=== PATIENT | female | born 1945 | race Caucasian/White ===

== ENCOUNTER 2016-10-07 09:48 | Emergency (ER) | payer MEDICARE ==
[2016-10-07] MEDS ORDERED: NORCO 5/325 PO ONE (12:41)
--- NOTE | 2016-10-07 12:46 | Emergency Department Report ---
Addendum entered and electronically signed by PEDRO ARREOLA NP 10/07/16 15:04: Original Note: ED Extremity Problem HPI - General Chief complaint: Extremity Problem,Nontraumatic Stated complaint: L LEG SWOLLEN/POSS BLOOD CLOTS Time Seen by Provider: 10/07/16 12:18 Source: patient Mode of arrival: Ambulatory Limitations: No Limitations - History of Present Illness MD Complaint: extremity pain Onset/Timin -: Sudden, week(s) Location: left, lower extremity History of Same: Yes (sciatica) -: Yes myalgia, Yes arthralgia Radiation: distal Severity scale (0 -10): 5 Quality: sharp Consistency: constant Improves with: rest Worsens with: weight bearing, walking, exertion, palpation Associated Symptoms: myalgias, arthralgias. denies: chest pain, shortness of breath, fever, rash - Related Data Home Medications Medication Instructions Recorded Confirmed Last Taken Amlodipine Besylate [Norvasc] 10 mg PO DAILY 01/04/14 12/28/14 12/28/14 Aspirin [Aspirin BABY CHEW TAB] 81 mg PO DAILY 01/04/14 12/28/14 12/28/14 Citalopram [Celexa] 20 mg PO DAILY 01/04/14 12/28/14 12/27/14 Cyclobenzaprine [Flexeril 10mg] 10 mg PO PRN 01/04/14 12/28/14 12/27/14 Dicyclomine HCl 20 mg PO QHS 01/04/14 12/28/14 12/27/14 Insulin NPL/Insulin Lispro 30 units SUB-Q DAILY 01/04/14 12/28/14 12/28/14 [Humalog Mix 75-25 Vial] Lisinopril/Hydrochlorothiazide 1 tab PO DAILY 01/04/14 12/28/14 12/28/14 [Zestoretic 20-25 mg] Loratadine [Claritin] 10 mg PO DAILY 01/04/14 12/28/14 12/28/14 Meclizine [Antivert] 25 mg PO TID PRN 01/04/14 12/28/14 12/28/14 Meloxicam 15 mg PO QHS 01/04/14 12/28/14 12/27/14 glipiZIDE [glipiZIDE XL] 20 mg PO DAILY 01/04/14 12/28/14 12/27/14 metFORMIN [Glucophage] 500 mg PO BID 01/04/14 12/28/14 12/27/14 Amoxicillin/K Clav Tab [Augmentin 1 each PO Q12HR 12/28/14 12/28/14 12/28/14 500 MG TAB] Butalb/Acetamin/Caff 50-325-40 1 each PO Q4H PRN 12/28/14 12/28/14 12/28/14 [Fioricet] Gabapentin [Neurontin] 300 mg PO BID 12/28/14 12/28/14 12/28/14 Ranitidine HCl [Zantac 150 MG TAB] 150 mg PO BID 12/28/14 12/28/14 12/28/14 Previous Rx's Medication Instructions Recorded Last Taken Type Clindamycin [Clindamycin CAP] 300 mg PO Q6H #40 capsule 12/28/14 Unknown Rx Acetaminophen/Codeine [Tylenol 1 tab PO Q8H PRN #12 tab 10/07/16 Unknown Rx /Codeine # 3 tab] Cyclobenzaprine HCl [Flexeril 5 MG 5 mg PO TID PRN #30 tab 10/07/16 Unknown Rx TAB] Allergies Allergy/AdvReac Type Severity Reaction Status Date / Time No Known Allergies Allergy Verified 12/28/14 11:07 ED Review of Systems ROS: Stated complaint: L LEG SWOLLEN/POSS BLOOD CLOTS Other details as noted in HPI Constitutional: denies: chills, fever Eyes: denies: eye pain, eye discharge, vision change ENT: denies: ear pain, throat pain Respiratory: denies: cough, shortness of breath, wheezing Cardiovascular: denies: chest pain, palpitations Endocrine: no symptoms reported Gastrointestinal: denies: abdominal pain, nausea, diarrhea Genitourinary: denies: urgency, dysuria, discharge Musculoskeletal: arthralgia, myalgia Skin: denies: rash, lesions Neurological: denies: headache, weakness, paresthesias Psychiatric: denies: anxiety, depression Hematological/Lymphatic: denies: easy bleeding, easy bruising ED Past Medical Hx - Past Medical History Previous Medical History?: Yes Hx Hypertension: Yes Hx CVA: No Hx Congestive Heart Failure: No Hx Diabetes: Yes Hx Deep Vein Thrombosis: No Hx Pulmonary Embolism: No Hx Arthritis: Yes Hx Psychiatric Treatment: Yes (depression) Additional medical history: Sciatica; Anemia; Hyperlipidemia. NEUROPATHY - Surgical History Hx Cholecystectomy: Yes Additional Surgical History: BILATERAL CATARACT REMOVAL - Social History Smoking Status: Never Smoker Substance Use Type: None - Medications Home Medications: Home Medications Medication Instructions Recorded Confirmed Last Taken Type Amlodipine Besylate [Norvasc] 10 mg PO DAILY 01/04/14 12/28/14 12/28/14 History Aspirin [Aspirin BABY CHEW TAB] 81 mg PO DAILY 01/04/14 12/28/14 12/28/14 History Citalopram [Celexa] 20 mg PO DAILY 01/04/14 12/28/14 12/27/14 History Cyclobenzaprine [Flexeril 10mg] 10 mg PO PRN 01/04/14 12/28/14 12/27/14 History Dicyclomine HCl 20 mg PO QHS 01/04/14 12/28/14 12/27/14 History Insulin NPL/Insulin Lispro 30 units SUB-Q DAILY 01/04/14 12/28/14 12/28/14 History [Humalog Mix 75-25 Vial] Lisinopril/Hydrochlorothiazide 1 tab PO DAILY 01/04/14 12/28/14 12/28/14 History [Zestoretic 20-25 mg] Loratadine [Claritin] 10 mg PO DAILY 01/04/14 12/28/14 12/28/14 History Meclizine [Antivert] 25 mg PO TID PRN 01/04/14 12/28/14 12/28/14 History Meloxicam 15 mg PO QHS 01/04/14 12/28/14 12/27/14 History glipiZIDE [glipiZIDE XL] 20 mg PO DAILY 01/04/14 12/28/14 12/27/14 History metFORMIN [Glucophage] 500 mg PO BID 01/04/14 12/28/14 12/27/14 History Amoxicillin/K Clav Tab [Augmentin 1 each PO Q12HR 12/28/14 12/28/14 12/28/14 History 500 MG TAB] Butalb/Acetamin/Caff 50-325-40 1 each PO Q4H PRN 12/28/14 12/28/14 12/28/14 History [Fioricet] Clindamycin [Clindamycin CAP] 300 mg PO Q6H #40 capsule 12/28/14 Unknown Rx Gabapentin [Neurontin] 300 mg PO BID 12/28/14 12/28/14 12/28/14 History Ranitidine HCl [Zantac 150 MG TAB] 150 mg PO BID 12/28/14 12/28/14 12/28/14 History Acetaminophen/Codeine [Tylenol 1 tab PO Q8H PRN #12 tab 10/07/16 Unknown Rx /Codeine # 3 tab] Cyclobenzaprine HCl [Flexeril 5 MG 5 mg PO TID PRN #30 tab 10/07/16 Unknown Rx TAB] ED Physical Exam - General Limitations: No Limitations General appearance: alert, in no apparent distress - Head Head exam: Present: atraumatic, normocephalic - Eye Eye exam: Present: normal appearance - ENT ENT exam: Present: mucous membranes moist - Neck Neck exam: Present: normal inspection - Respiratory Respiratory exam: Present: normal lung sounds bilaterally. Absent: respiratory distress - Cardiovascular Cardiovascular Exam: Present: regular rate, normal rhythm. Absent: systolic murmur, diastolic murmur, rubs, gallop - GI/Abdominal GI/Abdominal exam: Present: soft, normal bowel sounds - Rectal Rectal exam: Present: deferred - Expanded Lower Extremity Exam Left Hip exam: Present: normal inspection, full ROM, external rotation, internal rotation. Absent: tenderness, swelling, abrasion, ecchymosis, deformity, crepidus, erythema, shortening, pelvic stability Upper Leg exam: Present: normal inspection, tenderness (lateral thigh tenderness to deep palpatio no erythema no edema no ecchymosis ). Absent: swelling, abrasion, laceration, ecchymosis, deformity, crepidus, dislocation, erythema Knee exam: Present: normal inspection, full ROM, full knee extension. Absent: tenderness, swelling, abrasion, laceration, ecchymosis, deformity, crepidus, dislocation, erythema, effusion, pain w/ pronation/supination, posterior draw sign, pain/laxity with valgus, pain/laxity with varus Lower Leg exam: Present: normal inspection, tenderness (posterior calf tenderness to palpation negative homans sign ). Absent: swelling, abrasion, laceration, ecchymosis, deformity, crepidus, dislocation, erythema, palpable cord, Jagdeep's sign Ankle exam: Present: normal inspection, full ROM. Absent: tenderness, swelling , abrasion, laceration, ecchymosis, deformity, crepidus, erythema, anterior draw sign Foot/Toe exam: Present: normal inspection, full ROM. Absent: tenderness, swelling, abrasion, ecchymosis, deformity, crepidus, dislocation, erythema, calcaneal tenderness, tenderness at base of 5th metatarsal Neuro vascular tendon exam: Present: no vascular compromise. Absent: pulse deficit, abnormal cap refill, motor deficit, sensory deficit, tendon deficit, extremity cold to touch, pallor, abnormal 2-point discrimination, decreased fine /light touch, foot drop, peroneal nerve deficit, significant pain with passive ROM of distal joint Gait: Positive: observed and limited by pain - Back Exam Back exam: Present: normal inspection - Neurological Exam Neurological exam: Present: alert, oriented X3 - Psychiatric Psychiatric exam: Present: normal affect, normal mood - Skin Skin exam: Present: warm, dry, intact, normal color. Absent: rash ED Course Vital Signs 10/07/16 10:04 Temperature 98.7 F Pulse Rate 79 Respiratory 20 Rate Blood Pressure 154/70 O2 Sat by Pulse 100 Oximetry ED Medical Decision Making - Radiology Data Radiology results: report reviewed no DVT , soft tissue changes - Medical Decision Making pt is a 70 y/o [place]ish speaking female with son , pt able to communicate and understanding communication with this provider, t bedside pt sent for US LLE via primary care for LLE pain and swelling x 3 weeks, pt has hx of sciatica radiating to same leg multiple yrs, exam: pt with nad , discomfort with ambulation mild limp gait is steady and unassisted , LLE inspection no erythema no deformity no no ecchymosis, negative homas sign, ppepb+2 skin warm dry intact , back: mild pain to simulated axillary loading and rotation , sciatic region tenderness to deep palpation , left lateral thigh pain to deep palpation , calf soft no hot to touch no bruising no ecchymosis , subjective tenderness to deep palpation, PPEB+2, [employer] <3 secs bilat, pt currently rx: flexeril, gabapetin and meloxicam , Plan: doppler LLE r/o DVT result: no dvt, soft tissue changes, no cyst or mass palpable on exam, no ecchymosis no bruising suggesting contusion, pt's pain is improved with po pain med given in ED pt is ambulatory with minimal limp , gait steady pain 2/10 at this time , plan: dc to home with tylenol prn pain , flexeril 5 mg po tid prn spasm , follow up with Dr. Azra Sotomayor Primary Care doctor as directed , pt given strict instructions to return to emergency if symptoms worsen. both patient and son verabalized understanding and agreement with discharge plan. Critical care attestation.: If time is entered above; I have spent that time in minutes in the direct care of this critically ill patient, excluding procedure time. ED Disposition Disposition: DC-01 TO HOME OR SELFCARE Is pt being admited?: No Does the pt Need Aspirin: No Condition: Good Instructions: Muscle Strain (ED), Leg Sprain (ED) Additional Instructions: calf exercises as directed Prescriptions: Acetaminophen/Codeine [Tylenol /Codeine # 3 tab] 1 tab PO Q8H PRN #12 tab PRN Reason: Pain Cyclobenzaprine HCl [Flexeril 5 MG TAB] 5 mg PO TID PRN #30 tab PRN Reason: Spasms Referrals: PRIMARY CARE, [Primary Care Provider] - 3-5 Days Forms: Work/School Release Form(ED)
[2016-10-07 15:15] VITALS: BP 159/72
--- NOTE | 2016-10-08 07:29 | Vascular Lab Report ---
Left Lower Extremity Venous Duplex Study: Reason for Exam: Pain of the left lower extremity. Comments on the Right: A limited duplex study was done of the proximal veins of the right lower extremity. All veins visualized are freely compressible without evidence of internal echogenicity. Flow is spontaneous and phasic throughout. No evidence of acute or chronic thrombus is seen in any of the vessels visualized. Comments on the Left: All veins visualized are freely compressible without evidence of internal echogenicity. Flow is spontaneous and phasic throughout. No evidence of acute or chronic thrombus is seen in any of the vessels visualized. Soft tissue changes appearing in the mid calf could represent an old hematoma, complex cyst or a mass. Clinical correlation recommended. If warranted, consider CT or MRI. Impression: No evidence of acute or chronic deep venous thrombosis in the left lower extremity.
== END 2016-10-07 15:15 | disposition home or self-care (01) ==
LOC: ED 09:48
DX: M79.605 Pain in left leg (principal); R30.0 Dysuria; M79.652 Pain in left thigh; I10 Essential (primary) hypertension; E11.9 Type 2 diabetes mellitus without complications; F32.9 Major depressive disorder, single episode, unspecified; E78.5 Hyperlipidemia, unspecified; D64.9 Anemia, unspecified; E11.40 Type 2 diabetes mellitus with diabetic neuropathy, unspecified

== ENCOUNTER 2018-04-26 11:14 | Outpatient (CLI) | payer MEDICARE ==
[2018-04-26] MEDS ORDERED: XYLOCAINE TOPICAL 4% TP ONE (11:35)
== END 2018-04-26 11:15 | disposition home or self-care (01) ==
LOC: WOUND 11:14
PROVIDERS: ATTEND Surgery
DX: T81.89XD Other complications of procedures, not elsewhere classified, subsequent encounter (principal); E11.622 Type 2 diabetes mellitus with other skin ulcer; L97.322 Non-pressure chronic ulcer of left ankle with fat layer exposed; Y83.8 Other surgical procedures as the cause of abnormal reaction of the patient, or of later complication, without mention of misadventure at the time of the procedure
CPT/HCPCS: 11042; 11045; G0463; 36415; 83036; 99215

== ENCOUNTER 2018-04-26 12:34 | Outpatient (CLI) | payer MEDICARE | END 2018-04-26 12:35 | disposition home or self-care (01) | LOC: LAB 12:34 | PROVIDERS: ATTEND Surgery | DX: E11.628 Type 2 diabetes mellitus with other skin complications (principal); I10 Essential (primary) hypertension; M19.90 Unspecified osteoarthritis, unspecified site; Z90.49 Acquired absence of other specified parts of digestive tract | CPT/HCPCS: 36415; 83036 ==

== ENCOUNTER 2018-05-01 10:37 | Outpatient (CLI) | payer MEDICARE ==
--- NOTE | 2018-05-01 20:52 | Vascular Lab Report ---
FINAL REPORT EXAM: VL ARTERIAL DUPLEX LE LT HISTORY: TYPE 2 DIABETES MELLITUS WITH OTHER SKIN COMPLICATIONS TECHNIQUE: Grayscale, color flow and Doppler waveform imaging of the arterial structures of the left lower extremity from the distal external iliac artery to the anterior tibial artery and posterior ti bial artery was performed. Comparison: None . FINDINGS: There are triphasic waveforms in the distal external iliac artery, common femoral artery, superficial femoral artery and popliteal artery and biphasic waveforms in the deep femoral artery, proximal post erior tibial and proximal anterior tibial arteries. Peak systolic velocities are as follows: (Centimeters per second). Distal external iliac artery 136 Common femoral artery 116 Superficial femoral artery 105, 132, 83 Deep femoral artery 72 Popliteal artery 84 Posterior tibial artery 16.4 Anterior tibial artery 164.3 IMPRESSION: 1. Findings suggestive of significant atherosclerotic vascular disease at the level of the trifurcati on. CT angiogram or MR angiogram may be helpful for further evaluation.
== END 2018-05-01 10:38 | disposition home or self-care (01) ==
LOC: VAS 10:37
PROVIDERS: ATTEND Surgery
DX: E11.628 Type 2 diabetes mellitus with other skin complications (principal); I10 Essential (primary) hypertension; M19.90 Unspecified osteoarthritis, unspecified site

== ENCOUNTER 2018-05-04 08:28 | Outpatient (CLI) | payer MEDICARE ==
[2018-05-04] MEDS ORDERED: XYLOCAINE TOPICAL 4% TP ONE (08:31)
[2018-05-04] MEDS ORDERED: AD OINTMENT TP PRN (08:31)
== END 2018-05-04 08:29 | disposition home or self-care (01) ==
LOC: WOUND 08:28
PROVIDERS: ATTEND Surgery
DX: T81.89XD Other complications of procedures, not elsewhere classified, subsequent encounter (principal); E11.622 Type 2 diabetes mellitus with other skin ulcer; L97.325 Non-pressure chronic ulcer of left ankle with muscle involvement without evidence of necrosis; Y83.8 Other surgical procedures as the cause of abnormal reaction of the patient, or of later complication, without mention of misadventure at the time of the procedure
CPT/HCPCS: A6250

== ENCOUNTER 2018-05-11 08:54 | Outpatient (CLI) | payer MEDICARE | END 2018-05-11 08:55 | disposition home or self-care (01) | LOC: WOUND 08:54 ==

== ENCOUNTER 2018-05-24 08:12 | Outpatient (CLI) | payer MEDICARE ==
[2018-05-24] MEDS ORDERED: SILVER NITRATE TP ONE (08:21)
[2018-05-24] MEDS ORDERED: XYLOCAINE TOPICAL 4% TP ONE (08:22)
[2018-05-24] MEDS ORDERED: AD OINTMENT TP PRN (08:22)
== END 2018-05-24 08:13 | disposition home or self-care (01) ==
LOC: WOUND 08:12
PROVIDERS: ATTEND Surgery
DX: T81.89XD Other complications of procedures, not elsewhere classified, subsequent encounter (principal); E11.622 Type 2 diabetes mellitus with other skin ulcer; L97.322 Non-pressure chronic ulcer of left ankle with fat layer exposed; Y83.8 Other surgical procedures as the cause of abnormal reaction of the patient, or of later complication, without mention of misadventure at the time of the procedure

== ENCOUNTER 2018-06-07 08:36 | Outpatient (CLI) | payer MEDICARE ==
[2018-06-07] MEDS ORDERED: SILVER NITRATE TP ONE (09:12)
[2018-06-07] MEDS ORDERED: XYLOCAINE TOPICAL 4% TP ONE (09:12)
== END 2018-06-07 08:37 | disposition home or self-care (01) ==
LOC: WOUND 08:36
PROVIDERS: ATTEND Surgery
DX: T81.89XD Other complications of procedures, not elsewhere classified, subsequent encounter (principal); E11.622 Type 2 diabetes mellitus with other skin ulcer; L97.322 Non-pressure chronic ulcer of left ankle with fat layer exposed; Y83.8 Other surgical procedures as the cause of abnormal reaction of the patient, or of later complication, without mention of misadventure at the time of the procedure

== ENCOUNTER 2018-06-14 08:28 | Outpatient (CLI) | payer MEDICARE ==
[2018-06-14] MEDS ORDERED: XYLOCAINE TOPICAL 4% TP ONE (08:54)
== END 2018-06-14 08:29 | disposition home or self-care (01) ==
LOC: WOUND 08:28
PROVIDERS: ATTEND Surgery
DX: T81.89XD Other complications of procedures, not elsewhere classified, subsequent encounter (principal); E11.622 Type 2 diabetes mellitus with other skin ulcer; L97.322 Non-pressure chronic ulcer of left ankle with fat layer exposed; Y83.8 Other surgical procedures as the cause of abnormal reaction of the patient, or of later complication, without mention of misadventure at the time of the procedure

== ENCOUNTER 2018-06-21 08:32 | Outpatient (CLI) | payer MEDICARE | END 2018-06-21 08:33 | disposition home or self-care (01) | LOC: WOUND 08:32 ==

== ENCOUNTER 2018-06-28 08:29 | Outpatient (CLI) | payer MEDICARE ==
[2018-06-28] MEDS ORDERED: AD OINTMENT TP SCH (10:00)
[2018-06-28] MEDS ORDERED: XYLOCAINE TOPICAL 4% TP ONE (10:00)
== END 2018-06-28 08:30 | disposition home or self-care (01) ==
LOC: WOUND 08:29
PROVIDERS: ATTEND Surgery
DX: T81.89XD Other complications of procedures, not elsewhere classified, subsequent encounter (principal); E11.622 Type 2 diabetes mellitus with other skin ulcer; L97.322 Non-pressure chronic ulcer of left ankle with fat layer exposed; Y83.8 Other surgical procedures as the cause of abnormal reaction of the patient, or of later complication, without mention of misadventure at the time of the procedure
CPT/HCPCS: A6250

== ENCOUNTER 2018-07-19 08:30 | Outpatient (CLI) | payer MEDICARE ==
[2018-07-19] MEDS ORDERED: XYLOCAINE TOPICAL 4% TP ONE (08:33)
[2018-07-19] MEDS ORDERED: AD OINTMENT TP SCH (10:00)
== END 2018-07-19 08:31 | disposition home or self-care (01) ==
LOC: WOUND 08:30
PROVIDERS: ATTEND Surgery
DX: T81.89XD Other complications of procedures, not elsewhere classified, subsequent encounter (principal); E11.621 Type 2 diabetes mellitus with foot ulcer; L97.322 Non-pressure chronic ulcer of left ankle with fat layer exposed; Y83.8 Other surgical procedures as the cause of abnormal reaction of the patient, or of later complication, without mention of misadventure at the time of the procedure
CPT/HCPCS: A6250

== ENCOUNTER 2018-07-26 08:34 | Outpatient (CLI) | payer MEDICARE ==
[2018-07-26] MEDS ORDERED: XYLOCAINE TOPICAL 4% TP ONE (09:00)
== END 2018-07-26 08:35 | disposition home or self-care (01) ==
LOC: WOUND 08:34
PROVIDERS: ATTEND Surgery
DX: T81.89XD Other complications of procedures, not elsewhere classified, subsequent encounter (principal); E11.622 Type 2 diabetes mellitus with other skin ulcer; L97.322 Non-pressure chronic ulcer of left ankle with fat layer exposed; Y83.8 Other surgical procedures as the cause of abnormal reaction of the patient, or of later complication, without mention of misadventure at the time of the procedure

== ENCOUNTER 2018-08-02 08:34 | Outpatient (CLI) | payer MEDICARE ==
[2018-08-02] MEDS ORDERED: XYLOCAINE TOPICAL 4% TP ONE (09:00)
== END 2018-08-02 08:35 | disposition home or self-care (01) ==
LOC: WOUND 08:34
PROVIDERS: ATTEND Surgery
DX: T81.89XD Other complications of procedures, not elsewhere classified, subsequent encounter (principal); E11.622 Type 2 diabetes mellitus with other skin ulcer; L97.322 Non-pressure chronic ulcer of left ankle with fat layer exposed; Y83.8 Other surgical procedures as the cause of abnormal reaction of the patient, or of later complication, without mention of misadventure at the time of the procedure

== ENCOUNTER 2018-08-09 08:13 | Outpatient (CLI) | payer MEDICARE ==
[2018-08-09] MEDS ORDERED: XYLOCAINE TOPICAL 4% TP ONE (08:29)
[2018-08-09] MEDS ORDERED: AD OINTMENT TP SCH (10:00)
== END 2018-08-09 08:14 | disposition home or self-care (01) ==
LOC: WOUND 08:13
PROVIDERS: ATTEND Surgery
DX: T81.89XD Other complications of procedures, not elsewhere classified, subsequent encounter (principal); E11.622 Type 2 diabetes mellitus with other skin ulcer; L97.322 Non-pressure chronic ulcer of left ankle with fat layer exposed; Y83.8 Other surgical procedures as the cause of abnormal reaction of the patient, or of later complication, without mention of misadventure at the time of the procedure

== ENCOUNTER 2018-08-16 08:08 | Outpatient (CLI) | payer MEDICARE ==
[2018-08-16] MEDS ORDERED: XYLOCAINE TOPICAL 4% TP ONE (08:30)
[2018-08-16] MEDS ORDERED: SILVER NITRATE TP ONE (08:30)
== END 2018-08-16 08:09 | disposition home or self-care (01) ==
LOC: WOUND 08:08
PROVIDERS: ATTEND Surgery
DX: T81.89XD Other complications of procedures, not elsewhere classified, subsequent encounter (principal); E11.622 Type 2 diabetes mellitus with other skin ulcer; L97.322 Non-pressure chronic ulcer of left ankle with fat layer exposed; Y83.8 Other surgical procedures as the cause of abnormal reaction of the patient, or of later complication, without mention of misadventure at the time of the procedure

== ENCOUNTER 2018-08-23 08:39 | Outpatient (CLI) | payer MEDICARE | END 2018-08-23 08:40 | disposition home or self-care (01) | LOC: WOUND 08:39 | PROVIDERS: ATTEND Surgery | DX: T81.89XD Other complications of procedures, not elsewhere classified, subsequent encounter (principal); E11.622 Type 2 diabetes mellitus with other skin ulcer; L97.322 Non-pressure chronic ulcer of left ankle with fat layer exposed; Y83.8 Other surgical procedures as the cause of abnormal reaction of the patient, or of later complication, without mention of misadventure at the time of the procedure | CPT/HCPCS: 97605 ==

== ENCOUNTER 2018-08-30 08:10 | Outpatient (CLI) | payer MEDICARE | END 2018-08-30 08:11 | disposition home or self-care (01) | LOC: WOUND 08:10 | PROVIDERS: ATTEND Surgery | DX: T81.89XD Other complications of procedures, not elsewhere classified, subsequent encounter (principal); E11.622 Type 2 diabetes mellitus with other skin ulcer; L97.322 Non-pressure chronic ulcer of left ankle with fat layer exposed; Y83.8 Other surgical procedures as the cause of abnormal reaction of the patient, or of later complication, without mention of misadventure at the time of the procedure ==

== ENCOUNTER 2018-09-13 08:47 | Outpatient (CLI) | payer MEDICARE ==
[2018-09-13] MEDS ORDERED: XYLOCAINE TOPICAL 4% TP ONE (09:30)
[2018-09-13] MEDS ORDERED: SILVER NITRATE TP ONE (09:30)
== END 2018-09-13 08:48 | disposition home or self-care (01) ==
LOC: WOUND 08:47
PROVIDERS: ATTEND Surgery
DX: T81.89XD Other complications of procedures, not elsewhere classified, subsequent encounter (principal); E11.622 Type 2 diabetes mellitus with other skin ulcer; L97.322 Non-pressure chronic ulcer of left ankle with fat layer exposed; Y83.8 Other surgical procedures as the cause of abnormal reaction of the patient, or of later complication, without mention of misadventure at the time of the procedure

== ENCOUNTER 2018-09-20 08:46 | Outpatient (CLI) | payer MEDICARE ==
[2018-09-20] MEDS ORDERED: XYLOCAINE TOPICAL 4% TP ONE (09:00)
== END 2018-09-20 08:47 | disposition home or self-care (01) ==
LOC: WOUND 08:46
PROVIDERS: ATTEND Surgery
DX: T81.89XD Other complications of procedures, not elsewhere classified, subsequent encounter (principal); E11.622 Type 2 diabetes mellitus with other skin ulcer; L97.322 Non-pressure chronic ulcer of left ankle with fat layer exposed; Y83.8 Other surgical procedures as the cause of abnormal reaction of the patient, or of later complication, without mention of misadventure at the time of the procedure

== ENCOUNTER 2018-09-27 08:30 | Outpatient (CLI) | payer MEDICARE | END 2018-09-27 08:31 | disposition home or self-care (01) | LOC: WOUND 08:30 | PROVIDERS: ATTEND Surgery | DX: T81.89XD Other complications of procedures, not elsewhere classified, subsequent encounter (principal); E11.622 Type 2 diabetes mellitus with other skin ulcer; L97.322 Non-pressure chronic ulcer of left ankle with fat layer exposed; Y83.8 Other surgical procedures as the cause of abnormal reaction of the patient, or of later complication, without mention of misadventure at the time of the procedure | CPT/HCPCS: 99214; G0463 ==

== ENCOUNTER 2018-10-04 08:36 | Outpatient (CLI) | payer MEDICARE | END 2018-10-04 08:37 | disposition home or self-care (01) | LOC: WOUND 08:36 | PROVIDERS: ATTEND Surgery | DX: T81.89XD Other complications of procedures, not elsewhere classified, subsequent encounter (principal); E11.622 Type 2 diabetes mellitus with other skin ulcer; L97.322 Non-pressure chronic ulcer of left ankle with fat layer exposed; Y83.8 Other surgical procedures as the cause of abnormal reaction of the patient, or of later complication, without mention of misadventure at the time of the procedure ==

== ENCOUNTER 2018-10-11 08:18 | Outpatient (CLI) | payer MEDICARE ==
[2018-10-11] MEDS ORDERED: XYLOCAINE TOPICAL 4% TP ONE (09:00)
[2018-10-11] MEDS ORDERED: SILVER NITRATE TP ONE (09:00)
== END 2018-10-11 08:19 | disposition home or self-care (01) ==
LOC: WOUND 08:18
PROVIDERS: ATTEND Surgery
DX: T81.89XD Other complications of procedures, not elsewhere classified, subsequent encounter (principal); E11.622 Type 2 diabetes mellitus with other skin ulcer; L97.322 Non-pressure chronic ulcer of left ankle with fat layer exposed; Y83.8 Other surgical procedures as the cause of abnormal reaction of the patient, or of later complication, without mention of misadventure at the time of the procedure

== ENCOUNTER 2018-10-26 08:08 | Outpatient (CLI) | payer MEDICARE | END 2018-10-26 08:09 | disposition home or self-care (01) | LOC: WOUND 08:08 | PROVIDERS: ATTEND Surgery | DX: T81.89XD Other complications of procedures, not elsewhere classified, subsequent encounter (principal); E11.622 Type 2 diabetes mellitus with other skin ulcer; L97.322 Non-pressure chronic ulcer of left ankle with fat layer exposed; Y83.8 Other surgical procedures as the cause of abnormal reaction of the patient, or of later complication, without mention of misadventure at the time of the procedure ==

== ENCOUNTER 2018-11-02 08:03 | Outpatient (CLI) | payer MEDICARE ==
[2018-11-02] MEDS ORDERED: XYLOCAINE TOPICAL 4% TP ONE (08:30)
[2018-11-02] MEDS ORDERED: SILVER NITRATE TP ONE (08:30)
== END 2018-11-02 08:04 | disposition home or self-care (01) ==
LOC: WOUND 08:03
PROVIDERS: ATTEND Surgery
DX: T81.89XD Other complications of procedures, not elsewhere classified, subsequent encounter (principal); E11.622 Type 2 diabetes mellitus with other skin ulcer; L97.322 Non-pressure chronic ulcer of left ankle with fat layer exposed; Y83.8 Other surgical procedures as the cause of abnormal reaction of the patient, or of later complication, without mention of misadventure at the time of the procedure

== ENCOUNTER 2018-11-09 08:06 | Outpatient (CLI) | payer MEDICARE | END 2018-11-09 08:07 | disposition home or self-care (01) | LOC: WOUND 08:06 | PROVIDERS: ATTEND Surgery | DX: T81.89XD Other complications of procedures, not elsewhere classified, subsequent encounter (principal); E11.622 Type 2 diabetes mellitus with other skin ulcer; L97.322 Non-pressure chronic ulcer of left ankle with fat layer exposed; Y83.8 Other surgical procedures as the cause of abnormal reaction of the patient, or of later complication, without mention of misadventure at the time of the procedure ==

== ENCOUNTER 2018-11-16 08:17 | Outpatient (CLI) | payer MEDICARE | END 2018-11-16 08:18 | disposition home or self-care (01) | LOC: WOUND 08:17 | PROVIDERS: ATTEND Surgery | DX: T81.89XD Other complications of procedures, not elsewhere classified, subsequent encounter (principal); E11.622 Type 2 diabetes mellitus with other skin ulcer; L97.322 Non-pressure chronic ulcer of left ankle with fat layer exposed; Y83.8 Other surgical procedures as the cause of abnormal reaction of the patient, or of later complication, without mention of misadventure at the time of the procedure | CPT/HCPCS: 87076; 87116; 87186 ==

== ENCOUNTER 2018-11-23 08:30 | Outpatient (CLI) | payer MEDICARE ==
[2018-11-23] MEDS ORDERED: XYLOCAINE TOPICAL 4% TP ONE (08:45)
== END 2018-11-23 08:31 | disposition home or self-care (01) ==
LOC: WOUND 08:30
PROVIDERS: ATTEND Surgery
DX: T81.89XD Other complications of procedures, not elsewhere classified, subsequent encounter (principal); E11.622 Type 2 diabetes mellitus with other skin ulcer; L97.322 Non-pressure chronic ulcer of left ankle with fat layer exposed; Y83.8 Other surgical procedures as the cause of abnormal reaction of the patient, or of later complication, without mention of misadventure at the time of the procedure

== ENCOUNTER 2018-11-30 08:24 | Outpatient (CLI) | payer MEDICARE ==
[2018-11-30] MEDS ORDERED: XYLOCAINE TOPICAL 4% TP ONE (09:00)
== END 2018-11-30 08:25 | disposition home or self-care (01) ==
LOC: WOUND 08:24
PROVIDERS: ATTEND Surgery
DX: T81.89XD Other complications of procedures, not elsewhere classified, subsequent encounter (principal); E11.622 Type 2 diabetes mellitus with other skin ulcer; L97.322 Non-pressure chronic ulcer of left ankle with fat layer exposed; Y83.8 Other surgical procedures as the cause of abnormal reaction of the patient, or of later complication, without mention of misadventure at the time of the procedure

== ENCOUNTER 2018-12-07 08:34 | Outpatient (CLI) | payer MEDICARE ==
[2018-12-07] MEDS ORDERED: SILVER NITRATE TP ONE (09:00)
[2018-12-07] MEDS ORDERED: XYLOCAINE TOPICAL 4% TP ONE (09:00)
== END 2018-12-07 08:35 | disposition home or self-care (01) ==
LOC: WOUND 08:34
PROVIDERS: ATTEND Surgery
DX: T81.89XD Other complications of procedures, not elsewhere classified, subsequent encounter (principal); E11.622 Type 2 diabetes mellitus with other skin ulcer; L97.322 Non-pressure chronic ulcer of left ankle with fat layer exposed; Y83.8 Other surgical procedures as the cause of abnormal reaction of the patient, or of later complication, without mention of misadventure at the time of the procedure

== ENCOUNTER 2018-12-14 08:23 | Outpatient (CLI) | payer MEDICARE ==
[2018-12-14] MEDS ORDERED: XYLOCAINE TOPICAL 4% TP ONE (09:00)
== END 2018-12-14 08:24 | disposition home or self-care (01) ==
LOC: WOUND 08:23
PROVIDERS: ATTEND Surgery
DX: T81.89XD Other complications of procedures, not elsewhere classified, subsequent encounter (principal); E11.622 Type 2 diabetes mellitus with other skin ulcer; L97.322 Non-pressure chronic ulcer of left ankle with fat layer exposed; Y83.8 Other surgical procedures as the cause of abnormal reaction of the patient, or of later complication, without mention of misadventure at the time of the procedure

== ENCOUNTER 2018-12-20 08:13 | Outpatient (CLI) | payer MEDICARE ==
[2018-12-20] MEDS ORDERED: XYLOCAINE TOPICAL 4% TP ONE (09:00)
== END 2018-12-20 08:14 | disposition home or self-care (01) ==
LOC: WOUND 08:13
PROVIDERS: ATTEND Surgery
DX: T81.89XD Other complications of procedures, not elsewhere classified, subsequent encounter (principal); E11.622 Type 2 diabetes mellitus with other skin ulcer; L97.322 Non-pressure chronic ulcer of left ankle with fat layer exposed; Y83.8 Other surgical procedures as the cause of abnormal reaction of the patient, or of later complication, without mention of misadventure at the time of the procedure

== ENCOUNTER 2018-12-28 08:23 | Outpatient (CLI) | payer MEDICARE ==
[2018-12-28] MEDS ORDERED: XYLOCAINE TOPICAL 4% TP ONE (09:00)
== END 2018-12-28 08:24 | disposition home or self-care (01) ==
LOC: WOUND 08:23
PROVIDERS: ATTEND Surgery
DX: T81.89XD Other complications of procedures, not elsewhere classified, subsequent encounter (principal); E11.622 Type 2 diabetes mellitus with other skin ulcer; L97.322 Non-pressure chronic ulcer of left ankle with fat layer exposed; Y83.8 Other surgical procedures as the cause of abnormal reaction of the patient, or of later complication, without mention of misadventure at the time of the procedure

== ENCOUNTER 2019-01-04 08:09 | Outpatient (CLI) | payer MEDICARE ==
[2019-01-04] MEDS ORDERED: SILVER NITRATE TP ONE (08:18)
[2019-01-04] MEDS ORDERED: XYLOCAINE TOPICAL 4% TP ONE (08:18)
== END 2019-01-04 08:10 | disposition home or self-care (01) ==
LOC: WOUND 08:09
PROVIDERS: ATTEND Surgery
DX: T81.89XD Other complications of procedures, not elsewhere classified, subsequent encounter (principal); E11.622 Type 2 diabetes mellitus with other skin ulcer; L97.322 Non-pressure chronic ulcer of left ankle with fat layer exposed; Y83.8 Other surgical procedures as the cause of abnormal reaction of the patient, or of later complication, without mention of misadventure at the time of the procedure

== ENCOUNTER 2019-01-18 08:14 | Outpatient (CLI) | payer MEDICARE | END 2019-01-18 08:15 | disposition home or self-care (01) | LOC: WOUND 08:14 | PROVIDERS: ATTEND Surgery | DX: T81.89XD Other complications of procedures, not elsewhere classified, subsequent encounter (principal); E11.622 Type 2 diabetes mellitus with other skin ulcer; L97.322 Non-pressure chronic ulcer of left ankle with fat layer exposed; Y83.8 Other surgical procedures as the cause of abnormal reaction of the patient, or of later complication, without mention of misadventure at the time of the procedure ==

== ENCOUNTER 2019-01-24 08:17 | Outpatient (CLI) | payer MEDICARE | END 2019-01-24 08:18 | disposition home or self-care (01) | LOC: WOUND 08:17 | PROVIDERS: ATTEND Surgery | DX: T81.89XD Other complications of procedures, not elsewhere classified, subsequent encounter (principal); E11.622 Type 2 diabetes mellitus with other skin ulcer; L97.322 Non-pressure chronic ulcer of left ankle with fat layer exposed; Y83.8 Other surgical procedures as the cause of abnormal reaction of the patient, or of later complication, without mention of misadventure at the time of the procedure ==

== ENCOUNTER 2019-01-31 08:27 | Outpatient (CLI) | payer MEDICARE | END 2019-01-31 08:28 | disposition home or self-care (01) | LOC: WOUND 08:27 | PROVIDERS: ATTEND Surgery | DX: T81.89XD Other complications of procedures, not elsewhere classified, subsequent encounter (principal); E11.622 Type 2 diabetes mellitus with other skin ulcer; L97.322 Non-pressure chronic ulcer of left ankle with fat layer exposed; Y83.8 Other surgical procedures as the cause of abnormal reaction of the patient, or of later complication, without mention of misadventure at the time of the procedure ==

== ENCOUNTER 2019-02-08 08:47 | Outpatient (CLI) | payer MEDICARE ==
[2019-02-08] MEDS ORDERED: XYLOCAINE TOPICAL 4% TP ONE (09:30)
== END 2019-02-08 08:48 | disposition home or self-care (01) ==
LOC: WOUND 08:47
PROVIDERS: ATTEND Surgery
DX: T81.89XD Other complications of procedures, not elsewhere classified, subsequent encounter (principal); E11.622 Type 2 diabetes mellitus with other skin ulcer; L97.322 Non-pressure chronic ulcer of left ankle with fat layer exposed; Y83.8 Other surgical procedures as the cause of abnormal reaction of the patient, or of later complication, without mention of misadventure at the time of the procedure

== ENCOUNTER 2019-02-22 08:36 | Outpatient (CLI) | payer MEDICARE ==
[2019-02-22] MEDS ORDERED: LIDOCAINE (4%) 40 MG/ML TOPICAL SOLN 50 ML BOTTLE TP ONE (10:00)
== END 2019-02-22 08:37 | disposition home or self-care (01) ==
LOC: WOUND 08:36
PROVIDERS: ATTEND Surgery
DX: T81.89XD Other complications of procedures, not elsewhere classified, subsequent encounter (principal); E11.622 Type 2 diabetes mellitus with other skin ulcer; L97.322 Non-pressure chronic ulcer of left ankle with fat layer exposed; Y83.8 Other surgical procedures as the cause of abnormal reaction of the patient, or of later complication, without mention of misadventure at the time of the procedure
CPT/HCPCS: 99214; G0463

== ENCOUNTER 2019-03-01 08:33 | Outpatient (CLI) | payer MEDICARE | END 2019-03-01 08:34 | disposition home or self-care (01) | LOC: WOUND 08:33 | PROVIDERS: ATTEND Surgery | DX: T81.89XD Other complications of procedures, not elsewhere classified, subsequent encounter (principal); E11.622 Type 2 diabetes mellitus with other skin ulcer; L97.322 Non-pressure chronic ulcer of left ankle with fat layer exposed; Y83.8 Other surgical procedures as the cause of abnormal reaction of the patient, or of later complication, without mention of misadventure at the time of the procedure | CPT/HCPCS: 99214; G0463 ==

== ENCOUNTER 2019-03-14 08:41 | Outpatient (CLI) | payer MEDICARE | END 2019-03-14 08:42 | disposition home or self-care (01) | LOC: WOUND 08:41 | PROVIDERS: ATTEND Surgery | DX: T81.89XD Other complications of procedures, not elsewhere classified, subsequent encounter (principal); E11.622 Type 2 diabetes mellitus with other skin ulcer; L97.322 Non-pressure chronic ulcer of left ankle with fat layer exposed; Y83.8 Other surgical procedures as the cause of abnormal reaction of the patient, or of later complication, without mention of misadventure at the time of the procedure ==

== ENCOUNTER 2019-03-22 07:59 | Outpatient (CLI) | payer MEDICARE ==
[~2019-03-22 07:59] MED LIST: traMADol 50 MG TAB ONE
[2019-03-22] MEDS ORDERED: LIDOCAINE (4%) 40 MG/ML TOPICAL SOLN 50 ML BOTTLE TP ONE (10:00)
== END 2019-03-22 08:00 | disposition home or self-care (01) ==
LOC: WOUND 07:59
PROVIDERS: ATTEND Surgery
DX: T81.89XD Other complications of procedures, not elsewhere classified, subsequent encounter (principal); E11.622 Type 2 diabetes mellitus with other skin ulcer; L97.322 Non-pressure chronic ulcer of left ankle with fat layer exposed; Y83.8 Other surgical procedures as the cause of abnormal reaction of the patient, or of later complication, without mention of misadventure at the time of the procedure

== ENCOUNTER 2019-03-29 08:54 | Outpatient (CLI) | payer MEDICARE | END 2019-03-29 08:55 | disposition home or self-care (01) | LOC: WOUND 08:54 | PROVIDERS: ATTEND Surgery | DX: T81.89XD Other complications of procedures, not elsewhere classified, subsequent encounter (principal); E11.622 Type 2 diabetes mellitus with other skin ulcer; L97.322 Non-pressure chronic ulcer of left ankle with fat layer exposed; Y83.8 Other surgical procedures as the cause of abnormal reaction of the patient, or of later complication, without mention of misadventure at the time of the procedure | CPT/HCPCS: 97597 ==

== ENCOUNTER 2019-04-12 09:04 | Outpatient (CLI) | payer MEDICARE | END 2019-04-12 09:05 | disposition home or self-care (01) | LOC: WOUND 09:04 | CPT/HCPCS: 99213; G0463 ==